=== PATIENT | female | born 1960 | race Two or more races ===

== ENCOUNTER → 2020-07-19 | Outpatient (CLI) | payer OTHER ==
[~2020-07-19] MED LIST: SERT50TA28 PO
== END | disposition home or self-care (01) ==
LOC: STAR 10:57
PROVIDERS: ATTEND Surgery
DX: Z01.812 Encounter for preprocedural laboratory examination (principal); Z20.822 Contact with and (suspected) exposure to COVID-19
CPT/HCPCS: 93005; U0003

== ENCOUNTER 2020-07-25 06:06 | Day surgery (SDC) | payer OTHER ==
[~2020-07-25] VITALS: Ht 154.9 cm; Wt 69.0 kg
[2020-07-25 06:40] VITALS: BP 131/80
[2020-07-25] MEDS ORDERED: CHLORHEXIDINE 15 ML UDC ONE (06:42)
[2020-07-25] MEDS ORDERED: EPINEPHRINE 1 MG/ML, 1ML ONE (06:43)
[2020-07-25] MEDS ORDERED: BUPIVACAINE/PF 0.5% ONE (06:43)
[2020-07-25] MEDS ORDERED: CHLORHEXIDINE 15 ML UDC PO ONE (07:00)
[2020-07-25] MEDS ORDERED: LACTATED RINGERS 1,000 ML IV SCH (07:00)
[2020-07-25] MEDS ORDERED: MIDAZOLAM 1 MG/ML, 2ML ONE (07:22)
[2020-07-25] MEDS ORDERED: PROPOFOL 50 ML ONE ×2 (07:22→08:16)
[2020-07-25] MEDS ORDERED: CEFAZOLIN 1,000 MG ONE (07:34)
[2020-07-25] MEDS ORDERED: KETOROLAC 30 MG/1 ML ONE (07:34)
[2020-07-25] MEDS ORDERED: DEXAMETHASONE 4 MG/ML, 1ML ONE (07:34)
[2020-07-25] MEDS ORDERED: FENTANYL PF 250 MCG/5ML ONE (08:15)
[2020-07-25] MEDS ORDERED: ONDANSETRON 2MG/ML, 2ML ONE (08:45)
[2020-07-25] MEDS ORDERED: SUCCINYLCHOLINE 20 MG/ML, 10ML ONE (08:45)
[2020-07-25] MEDS ORDERED: PROPOFOL 10 MG/ML, 20ML ONE (08:45)
[2020-07-25] MEDS ORDERED: ROCURONIUM 10MG/ML,5ML ONE (08:45)
[2020-07-25] MEDS ORDERED: HYDR-1067 PO (08:54)
[2020-07-25] MEDS ORDERED: MEPERIDINE/PF 25MG/0.5ML IVPush PRN (09:00)
[2020-07-25] MEDS ORDERED: EPHEDRINE 50 MG/ML, 1ML IM PRN (09:00)
[2020-07-25] MEDS ORDERED: DIAZEPAM 5 MG/ML, 2ML IVPush PRN (09:00)
[2020-07-25] MEDS ORDERED: PROMETHAZINE 25 MG/ML, 1ML IVPush PRN (09:00)
[2020-07-25] MEDS ORDERED: LABETALOL 5MG/ML, 20ML IV PRN (09:00)
[2020-07-25] MEDS ORDERED: ONDANSETRON 2MG/ML, 2ML IVPush PRN (09:00)
[2020-07-25] MEDS ORDERED: EPHEDRINE 50 MG/ML, 1ML IVPush PRN (09:00)
[2020-07-25] MEDS ORDERED: morphine SULFATE 10 MG/ML, 1ML IVPush PRN (09:00)
[2020-07-25] MEDS ORDERED: ACETAMINOPHEN 325 MG TABLET PO PRN (09:00)
[2020-07-25] MEDS ORDERED: DIPHENHYDRAMINE 50 MG/ML, 1ML IVPush PRN (09:00)
[2020-07-25] MEDS ORDERED: FENTANYL PF 100 MCG/2ML ONE ×2 (09:05→09:38)
[2020-07-25] MEDS: FENTANYL PF 100 MCG/2ML IV PRN ×4 (09:06→09:42)
[2020-07-25] MEDS ORDERED: ACETAMINOPHEN 650 MG/20.3 ML UDC ONE (09:23)
[2020-07-25] MEDS ORDERED: OXYcodone 5 MG/5 ML ORAL.SOL UDC ONE ×2 (09:24→09:54)
[2020-07-25] MEDS: OXYcodone 5 MG/5 ML ORAL.SOL UDC PO PRN ×2 (09:26→09:55)
== END 2020-07-25 11:50 | disposition home or self-care (01) ==
LOC: OUT 06:06
PROVIDERS: ATTEND Surgery
DX: K80.10 Calculus of gallbladder with chronic cholecystitis without obstruction (principal); K66.0 Peritoneal adhesions (postprocedural) (postinfection); E78.5 Hyperlipidemia, unspecified; Z79.899 Other long term (current) drug therapy
CPT/HCPCS: 47562; 88304; J0171; J0330; J0690; J1100; J1885; J2250; J2405; J2704; J3010; J7120